=== PATIENT | female | born 1950 | race Two or more races ===

== ENCOUNTER 2018-11-28 23:02 | Inpatient (IN) | payer OTHER ==
[~2018-11-28] VITALS: Ht 165.1 cm; Wt 50.4 kg
== END 2018-12-16 18:31 | disposition designated cancer center or children's hospital (05) | DRG 280 ==
LOC: ER 23:02 → ICU 11-29 13:02 → ICU-2 11-29 13:02 → ICU 11-30 07:25 → MEDJ 12-06 19:03
PROVIDERS: ADMIT Internal Medicine
PROC: 5A1935Z Respiratory Ventilation, Less than 24 Consecutive Hours (ICD-10-PCS; principal; 2018-11-29)
PROC: B246ZZZ Ultrasonography of Right and Left Heart (ICD-10-PCS; 2018-11-29)
PROC: 4A033R1 Measurement of Arterial Saturation, Peripheral, Percutaneous Approach (ICD-10-PCS; 2018-11-29)
PROC: 3E0F7GC Introduction of Other Therapeutic Substance into Respiratory Tract, Via Natural or Artificial Opening (ICD-10-PCS; 2018-11-29)
PROC: 0BH17EZ Insertion of Endotracheal Airway into Trachea, Via Natural or Artificial Opening (ICD-10-PCS; 2018-11-29)
PROC: 0DH67UZ Insertion of Feeding Device into Stomach, Via Natural or Artificial Opening (ICD-10-PCS; 2018-11-30)
PROC: 3E0G76Z Introduction of Nutritional Substance into Upper GI, Via Natural or Artificial Opening (ICD-10-PCS; 2018-11-30)
PROC: 8E0ZXY6 Isolation (ICD-10-PCS; 2018-11-30)
PROC: 4A12X4Z Monitoring of Cardiac Electrical Activity, External Approach (ICD-10-PCS; 2018-12-01)
PROC: 02HV33Z Insertion of Infusion Device into Superior Vena Cava, Percutaneous Approach (ICD-10-PCS; 2018-12-02)
DX: I21.4 Non-ST elevation (NSTEMI) myocardial infarction (principal); J96.01 Acute respiratory failure with hypoxia; I50.43 Acute on chronic combined systolic (congestive) and diastolic (congestive) heart failure; A41.1 Sepsis due to other specified staphylococcus; R65.20 Severe sepsis without septic shock; E44.0 Moderate protein-calorie malnutrition; N39.0 Urinary tract infection, site not specified; J90 Pleural effusion, not elsewhere classified; N17.8 Other acute kidney failure; E87.3 Alkalosis; I11.0 Hypertensive heart disease with heart failure; I08.1 Rheumatic disorders of both mitral and tricuspid valves; B96.0 Mycoplasma pneumoniae [M. pneumoniae] as the cause of diseases classified elsewhere; E87.6 Hypokalemia; E11.65 Type 2 diabetes mellitus with hyperglycemia; Z79.4 Long term (current) use of insulin; Z99.81 Dependence on supplemental oxygen

== ENCOUNTER 2019-01-29 14:10 | Inpatient (IN) | payer OTHER ==
[~2019-01-29] VITALS: Ht 152.4 cm; Wt 51.7 kg
--- NOTE | 2019-01-29 14:25 | NUR ---
SE RECIBE PTE. FEMENINA ALERTA CONCIENTE EN [place] ESCOLTADA POR FAMILIAR, HIJA PTE. REFIERE PTE. CON DIFICULTADA PARA RESPIRAR DESDE DESDE HACE MEDIA HORA. SE PASA A AREA DE CRITICO YA QUE PRESENTO 49% DE OXIGENO SE PRESENTA A DR. CRUZ MEDICO EN [place]. SE CONECTA A MONITOR CARDIACO.
--- NOTE | 2019-01-29 15:21 | NUR ---
SE RECIBE AL PACIENTE EN [place] Y ACOMPANADA DE TAMEZ HIJA. PACIENTE PALIDA Y FALTA DE AIRE. SE UBICA AL PACIENTE EN CUBICULO #1 EN CRITICO SE CANALIZA AL PACIENTE UTILIZANDO MEDIDAS ASEPTICAS. PACIENTE SE VA EN ARRESTO SE ACTIVA CLAVE A LAS 2:26 P.M. SE COMIENZA CPR. DUENO ENTUBA AL PACIENTE CON TUBO 7.0 A LAS 2:28 P.M. SE ADMINISTRA EPINEFRINA 2:29. 2:31 P.M. SE ADMINISTRA LASIX 40MG. SE ADMINISTRA VERSED 10 MG A LAS 2:37 P.M. 2:39 P.M. SE ADMINISTRA UN DRIP DE TRIDIL BAJANDO @12 Y VERIFICANDO EL B/P. TODO BAJO ORDENES MEDICAS Y UTILIZANDO MEDIDAS ASEPTICAS.
--- NOTE | 2019-01-29 15:30 | NUR ---
1505: SE RECIBE PACIENE ENTUBADA Y RESPIRANDO CON ASISTENCIA DE VENTILADOR MECHANICO. PACIENTE SE ENCUENTRA SEDADA. PACIENTE TIENE TRIDIL BAJANDO A 2 ML/HR Y VERSED 100MG/1000ML BAJANDO A 5 ML/HR. PACIENTE MUESTRA AREAS DE VENOPUNCION ULIS DE EDEMA Y DOLOR. PACIENTE MUESTRA GUZMAN A GRAVEDAD. PACIENTE SE MANTIEN BAJO OBSERVACION CRITICO PARA CAMBIOS SIGNIFICATIVOS EN TAMEZ CORNELL.
[2019-01-29] MEDS ORDERED: TRADJENTA5 MG PO (18:26)
[2019-01-29] MEDS ORDERED: ECOTRIN81 MG PO (18:27)
[2019-01-29] MEDS ORDERED: PLAVIX75 MG PO (18:27)
[2019-01-29] MEDS ORDERED: ISOSORBIDE MONO60 MG PO (18:28)
[2019-01-29] MEDS ORDERED: CARVEDILOL3.125 MG PO (18:29)
[2019-01-29] MEDS ORDERED: LIPITOR40 MG PO (18:29)
[2019-02-10] MEDS ORDERED: CARVEDILOL3.125 MG PO (08:49)
[2019-02-10] MEDS ORDERED: LIPITOR40 MG PO (08:49)
[2019-02-10] MEDS ORDERED: SPIRONOLACTONE25 MG PO (08:49)
[2019-02-10] MEDS ORDERED: TRADJENTA5 MG PO (08:49)
[2019-02-10] MEDS ORDERED: CLOPIDOGREL BIS75 MG PO (08:49)
[2019-02-10] MEDS ORDERED: FUROSEMIDE40 MG PO (08:49)
[2019-02-10] MEDS ORDERED: ASA-EC81 MG PO (08:49)
[2019-02-10] MEDS ORDERED: CANDESARTAN CILE8 MG PO (08:49)
== END 2019-02-10 15:42 | disposition home health service (06) | DRG 208 ==
LOC: ER 14:10 → ICU 18:55 → SURH 02-06 19:13 → ICU 02-06 19:14 → SURH 02-07 00:09
PROVIDERS: ADMIT Internal Medicine
PROC: 5A1935Z Respiratory Ventilation, Less than 24 Consecutive Hours (ICD-10-PCS; principal; 2019-01-29)
PROC: 0BH17EZ Insertion of Endotracheal Airway into Trachea, Via Natural or Artificial Opening (ICD-10-PCS; 2019-01-29)
PROC: 4A033R1 Measurement of Arterial Saturation, Peripheral, Percutaneous Approach (ICD-10-PCS; 2019-01-29)
PROC: 0T9B70Z Drainage of Bladder with Drainage Device, Via Natural or Artificial Opening (ICD-10-PCS; 2019-01-29)
PROC: 0DH67UZ Insertion of Feeding Device into Stomach, Via Natural or Artificial Opening (ICD-10-PCS; 2019-01-29)
PROC: 3E0G76Z Introduction of Nutritional Substance into Upper GI, Via Natural or Artificial Opening (ICD-10-PCS; 2019-01-29)
PROC: B54DZZZ Ultrasonography of Bilateral Lower Extremity Veins (ICD-10-PCS; 2019-01-29)
PROC: 3E0F7GC Introduction of Other Therapeutic Substance into Respiratory Tract, Via Natural or Artificial Opening (ICD-10-PCS; 2019-01-29)
PROC: B246ZZZ Ultrasonography of Right and Left Heart (ICD-10-PCS; 2019-01-29)
PROC: 02HV33Z Insertion of Infusion Device into Superior Vena Cava, Percutaneous Approach (ICD-10-PCS; 2019-01-31)
PROC: 4A12X4Z Monitoring of Cardiac Electrical Activity, External Approach (ICD-10-PCS; 2019-02-07)
DX: J96.01 Acute respiratory failure with hypoxia (principal); I50.43 Acute on chronic combined systolic (congestive) and diastolic (congestive) heart failure; I21.4 Non-ST elevation (NSTEMI) myocardial infarction; A41.89 Other specified sepsis; J98.11 Atelectasis; E44.0 Moderate protein-calorie malnutrition; E87.4 Mixed disorder of acid-base balance; N17.8 Other acute kidney failure; I31.3 Pericardial effusion (noninflammatory); E87.2 Acidosis; Z99.11 Dependence on respirator [ventilator] status; I25.10 Atherosclerotic heart disease of native coronary artery without angina pectoris; I87.2 Venous insufficiency (chronic) (peripheral); A49.01 Methicillin susceptible Staphylococcus aureus infection, unspecified site; I08.3 Combined rheumatic disorders of mitral, aortic and tricuspid valves; I11.0 Hypertensive heart disease with heart failure; Z99.81 Dependence on supplemental oxygen; R31.0 Gross hematuria

== ENCOUNTER 2020-10-29 10:04 | Emergency (ER) | payer OTHER ==
[~2020-10-29] VITALS: Ht 147.3 cm; Wt 54.4 kg
[~2020-10-29 10:04] MED LIST: ASA-EC81 MG PO; CANDESARTAN CILE8 MG PO; CARVEDILOL3.125 MG PO; CLOPIDOGREL BIS75 MG PO; ECOTRIN81 MG PO; FUROSEMIDE40 MG PO; ISOSORBIDE MONO60 MG PO; LIPITOR40 MG PO; PLAVIX75 MG PO; SPIRONOLACTONE25 MG PO; TRADJENTA5 MG PO
== END 2020-10-29 10:46 | disposition home or self-care (01) ==
LOC: ER 10:04
DX: S90.811A Abrasion, right foot, initial encounter (principal); X58.XXXA Exposure to other specified factors, initial encounter; Y93.89 Activity, other specified; Y92.89 Other specified places as the place of occurrence of the external cause; Y99.8 Other external cause status

== ENCOUNTER 2024-02-10 14:21 | Emergency (ER) | payer OTHER ==
[~2024-02-10] VITALS: Ht 152.4 cm; Wt 52.2 kg
[2024-02-10] MEDS ORDERED: JARDIANCE10 MG (14:30)
[2024-02-10] MEDS ORDERED: ENTRESTO 24 MG1 EACH (14:31)
[2024-02-10] MEDS ORDERED: ONDANSETRON HCL 2 MG/ML VIAL IV ONE (15:45)
[2024-02-10] MEDS ORDERED: MECLIZINE HCL 12.5 MG TABLET PO ONE (15:45)
[2024-02-10] MEDS ORDERED: FAMOTIDINE/PF 20 MG/2 ML VIAL IV ONE (15:45)
[2024-02-10 16:41] LABS: HEMATOCRIT 40.9 % (36.0-45.00); HEMOGLOBIN 13.8 g/dL (12.0-15.00); MEAN CELL VOLUME 95.8 fL (80.00-100.00); MEAN CORPUSCULAR HEMOGLOBIN 32.4 pg (27.00-32.0); MEAN CORPUSCULAR HGB CONC 33.8 g/dl (32.0-36.0); PLATELET COUNT 210 K/uL (150-450); RED BLOOD COUNT 4.26 M/uL (4.00-6.00); RED CELL DISTRIBUTION WIDTH 12.4 % (11.5-14.5)
[2024-02-10 16:46] LABS: PH,URINE 6.5 (5.0-8.0); URINE APPEARANCE Clear; URINE BILIRRUBIN Negative (NEGATIVE); URINE BLOOD Negative; URINE COLOR Yellow; URINE KETONE Negative (NEGATIVE); URINE LEUKOCYTE Small; URINE NITRATE Negative; URINE PROTEIN Negative (NEGATIVE); URINE UROBILINOGEN 0.2 E.U./dl
[2024-02-10 16:49] LABS: URINE BACTERIA 2214.1 uL (0.0-1933); URINE EPITHELIAL CELLS 37.1 uL (0.0-38.8); URINE RBC 13.8 uL (0.0-20.8)
[2024-02-10 17:07] LABS: INR 0.98; PROTHROMBIN TIME 10.7 SECONDS (9.0-11.5)
[2024-02-10 17:13] LABS: ALBUMIN 4.7 gm/dL (3.4-5.0); BILIRUBIN TOTAL 0.85 mg/dL (0.3-1.2); CALCIUM 9.9 mg/dL (8.5-10.1); CREATININE SERUM 1.45 mg/dL (0.55-1.02); GFR 35.2; GLOBULINA 3.9 G/DL (2.4-3.5); POTASSIUM 4.8 mEq/L (3.5-5.1); TOTAL PROTEIN 8.6 gm/dL (6.4-8.2)
[2024-02-10 17:15] LABS: URINE GLUCOSE >=1000 MG/DL (NEGATIVE)
[2024-02-10] MEDS ORDERED: CEFTRIAXONE SODIUM 1,000 MG VIAL IM ONE (18:45)
[2024-02-10] MEDS ORDERED: BACTRIM 400-801 EACH PO (19:00)
== END 2024-02-10 19:52 ==
LOC: ER 14:23
PROVIDERS: General Practice
DX: N39.0 Urinary tract infection, site not specified (principal); R42 Dizziness and giddiness; R12 Heartburn; R11.0 Nausea; I10 Essential (primary) hypertension; E11.9 Type 2 diabetes mellitus without complications